=== PATIENT | female | born 1970 | race Caucasian/White ===

== ENCOUNTER 2017-10-07 18:46 | Emergency (ER) | payer MEDICAID ==
[~2017-10-07] VITALS: Ht 152.4 cm; Wt 66.0 kg
[2017-10-07 19:03] VITALS: BP 139/85
[2017-10-07] MEDS ORDERED: [UNRECOGNIZED DRUG - OTHER] PO (19:06)
[2017-10-07] MEDS ORDERED: SPIR50 PO (19:06)
== END 2017-10-08 00:10 | disposition left against medical advice (07) ==
LOC: EMS 18:49
DX: R42 Dizziness and giddiness (principal); Z53.21 Procedure and treatment not carried out due to patient leaving prior to being seen by health care provider